=== PATIENT | female | born 1990 | race Two or more races ===

== ENCOUNTER 2024-04-09 04:01 | Emergency (ER) | payer MEDICAID, OTHER ==
[~2024-04-09] VITALS: Ht 154.9 cm; Wt 82.1 kg
[2024-04-09] MEDS ORDERED: ACETAMINOPHEN ES 500 MG TABLET ONE (04:30)
[2024-04-09] MEDS: ACETAMINOPHEN ES 500 MG TABLET PO ONE (04:34)
[2024-04-09] MEDS ORDERED: IBUP-1953 PO (04:53)
[2024-04-09 05:15] VITALS: BP 136/84; TEMP 98.3; O2SAT 99
== END 2024-04-09 05:16 | disposition home or self-care (01) ==
LOC: ER 04:03
DX: S40.021A Contusion of right upper arm, initial encounter (principal); S50.812A Abrasion of left forearm, initial encounter; S50.811A Abrasion of right forearm, initial encounter; J45.909 Unspecified asthma, uncomplicated; Z88.0 Allergy status to penicillin; W50.0XXA Accidental hit or strike by another person, initial encounter; Y93.89 Activity, other specified; Y92.89 Other specified places as the place of occurrence of the external cause; Y99.8 Other external cause status